=== PATIENT | male | born 1955 | race Caucasian/White ===

== ENCOUNTER 2021-03-11 05:11 | Emergency (ER) | payer SELFPAY ==
[2021-03-11] MEDS ORDERED: Sodium Chloride 0.9% 1000 ML 1,000 ML IV STA (05:31)
[2021-03-11] MEDS ORDERED: Cardizem IV 50 MG/10 ML IV ONE ×2 (05:31→05:37)
[2021-03-11] MEDS ORDERED: Ativan 2 MG/1 ML VIAL IV PRN (05:33)
--- NOTE | 2021-03-11 05:35 | ERPHSYRPT ---
- History of Present Illness Time Seen by Provider: 03/11/21 05:34 Source: patient Exam Limitations: no limitations Patient Subjective Stated Complaint: Patient states he has HTN and his B/P is currently high due to being out of his diltiazem medication. Patient states he is originally from [place] and is in [place] visiting family and ran out of his medication. Triage Nursing Assessment: Patient wheeled into ER in chair. Labored breathing noted. Skin tone pink, warm, dry. NO cough noted. Denies chest pain. Anterior chest clear. Physician History: Patient states he has HTN and his B/P is currently high due to being out of his diltiazem medication. Patient states he is originally from [place] and is in [place] visiting family and ran out of his medication. Patient denies any other symptoms including chest pain nausea vomiting abdominal pain. Patient is anxious in the ER and hyperventilating. Timing/Duration: today Activities at Onset: none Nitro Today/Relief: no nitro taken today Aspirin Treatment Today: no aspirin today Associated Symptoms: shortness of breath, other (anxious, hyperventivetilating) Prior Chest Pain/Cardiac Workup: no prior chest pain Allergies/Adverse Reactions: No Known Drug Allergies Allergy (Verified 03/11/21 05:26) Home Medications: Lisinopril 10 mg [Zestril 10 MG] 10 mg PO DAILY 03/11/21 [History] Paroxetine HCl 20 mg [Paxil 20 MG] 20 mg PO DAILY 03/11/21 [History] Hx Tetanus, Diphtheria Vaccination/Date Given: Yes Immunizations Up to Date: Yes Travel Risk - International Travel Have you traveled outside of the country in past 3 weeks: No - Coronavirus Screening Are you exhibiting any of the following symptoms?: Yes Symptoms: Shortness of Breath Close contact with a COVID-19 positive Pt in past 14-21 Days: No - Vaccine Status Have you recieved a Covid-19 vaccination: No - Review of Systems Constitutional: No Fever, No Chills Eyes: No Symptoms Ears, Nose, & Throat: No Symptoms Respiratory: Dyspnea, No Cough Cardiac: No Chest Pain, No Edema, No Palpitations, No Syncope, No Orthopnea, No PND Abdominal/Gastrointestinal: No Abdominal Pain, No Nausea, No Vomiting, No Diarrhea Genitourinary Symptoms: No Dysuria Musculoskeletal: No Back Pain, No Neck Pain Skin: No Rash Neurological: Irritability, No Dizziness, No Focal Weakness, No Sensory Changes Psychological: No Symptoms, Anxiety Endocrine: No Symptoms All Other Systems: Reviewed and Negative - Past Medical History Pertinent Past Medical History: Yes Neurological History: No Pertinent History ENT History: No Pertinent History Cardiac History: Hypertension Respiratory History: No Pertinent History Endocrine Medical History: No Pertinent History Musculoskeletal History: No Pertinent History GI Medical History: No Pertinent History History: No Pertinent History Psycho-Social History: Anxiety, Depression Male Reproductive Disorders: No Pertinent History - Past Surgical History Past Surgical History: Yes Neuro Surgical History: No Pertinent History Cardiac: No Pertinent History Respiratory: No Pertinent History Gastrointestinal: No Pertinent History Genitourinary: No Pertinent History Musculoskeletal: No Pertinent History Male Surgical History: No Pertinent History 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 - Social History Smoking Status: Current every day smoker How long have you smoked: 40 years Drug Use: none - Nursing Vital Signs Nursing Vital Signs: Initial Vital Signs Temperature 98 F 03/11/21 05:15 Pulse Rate 98 H 03/11/21 05:15 Respiratory Rate 26 H 03/11/21 05:15 Blood Pressure 186/81 03/11/21 05:15 O2 Sat by Pulse Oximetry 97 03/11/21 05:15 - Physical Exam General Appearance: no apparent distress, alert Eye Exam: PERRL/EOMI, eyes nml inspection Ears, Nose, Throat Exam: normal ENT inspection, moist mucous membranes Neck Exam: normal inspection, non-tender, supple Respiratory Exam: normal breath sounds, lungs clear, No respiratory distress Cardiovascular Exam: regular rate/rhythm, normal heart sounds, No edema Gastrointestinal/Abdomen Exam: soft, No tenderness, No mass Back Exam: normal inspection, No CVA tenderness, No vertebral tenderness Extremity Exam: normal inspection, normal range of motion Neurologic Exam: alert, oriented x 3, cooperative, normal mood/affect, nml cerebellar function, sensation nml, No motor deficits Skin Exam: normal color, warm, dry Lymphatic Exam: No adenopathy SpO2: 97 - Course Nursing assessment & vital signs reviewed: Yes EKG Interpreted by Me: Sinus Rhythm Ordered Tests: Active Orders 24 hr Category Date Time Status EKG-ER Only STAT Care 03/11/21 05:31 Active BMP Stat Lab 03/11/21 05:45 Completed CBC W DIFF Stat Lab 03/11/21 05:45 Completed NT PRO BNP Stat Lab 03/11/21 05:45 Completed TROPONIN Q3H Lab 03/11/21 05:45 Completed TROPONIN Q3H Lab 03/11/21 08:45 Ordered TROPONIN Q3H Lab 03/11/21 11:45 Ordered TROPONIN Q3H Lab 03/11/21 14:45 Ordered TROPONIN Q3H Lab 03/11/21 17:45 Ordered Medication Summary Generic Name Dose Route Start Last Admin Trade Name Freq PRN Reason Stop Dose Admin Diltiazem HCl 120 mg 03/11/21 10:00 Cardizem Cd 120 Mg PO 04/10/21 09:59 DAILY NORMAN Sodium Chloride 1,000 mls @ 999 mls/hr 03/11/21 05:31 03/11/21 05:38 Sodium Chloride 0.9% 1000 Ml IV 03/11/21 06:31 999 mls/hr .Q1H1M STA Administration Lorazepam 1 mg 03/11/21 05:33 03/11/21 05:41 Ativan 2 Mg/1 Ml Vial IV 04/10/21 05:32 1 mg PRN PRN Administration CIWA SCORE Discontinued Medications Generic Name Dose Route Start Last Admin Trade Name Freq PRN Reason Stop Dose Admin Diltiazem HCl 10 mg 03/11/21 05:31 03/11/21 05:38 Cardizem Iv 50 Mg/10 Ml IV 03/11/21 05:32 10 mg STAT ONE Administration Diltiazem HCl Confirm 03/11/21 05:37 Cardizem Iv 50 Mg/10 Ml Administered 03/11/21 05:38 Dose 50 mg IV .STK-MED ONE Sodium Chloride Confirm 03/11/21 05:36 Sodium Chloride 0.9% 1000 Ml Administered 03/11/21 05:37 Dose 1,000 mls @ ud .ROUTE .STK-MED ONE Lab/Rad Data: Laboratory Result Diagrams 03/11/21 05:45 03/11/21 05:45 Laboratory Results 03/11/21 03/11/21 03/11/21 Range/Units 05:45 05:45 05:45 WBC 8.9 (4.0-10.5) K/mm3 RBC 4.69 (4.1-5.6) M/mm3 Hgb 15.1 (12.5-18.0) gm/dl Hct 44.1 (42-50) % MCV 94.0 (78-100) fl MCH 32.2 H (26-32) pg MCHC 34.2 (32-36) g/dl RDW 15.2 H (11.5-14.0) % Plt Count 174 (150-450) K/mm3 MPV 9.4 (7.5-11.0) fl Gran % 67.2 H (36.0-66.0) % Eos # (Auto) 0.04 (0-0.5) Absolute Lymphs (auto) 1.70 (1.0-4.6) Absolute Monos (auto) 1.14 (0.0-1.3) Lymphocytes % 19.2 L (24.0-44.0) % Monocytes % 12.9 H (0.0-12.0) % Eosinophils % 0.5 (0.00-5.0) % Basophils % 0.2 (0.0-0.4) % Absolute Granulocytes 5.96 (1.4-6.9) Basophils # 0.02 (0-0.4) Sodium 134 L (137-145) mmol/L Potassium 5.1 (3.5-5.1) mmol/L Chloride 96 L (98-107) mmol/L Carbon Dioxide 22 (22-30) mmol/L Anion Gap 21.3 H (5-15) MEQ/L BUN 9 (9-20) mg/dL Creatinine 0.78 (0.66-1.25) mg/dL Estimated GFR > 60.0 ML/MIN Glucose 101 (74-106) mg/dL Calcium 9.6 (8.4-10.2) mg/dL Troponin I < 0.012 (0.000-0.034) ng/mL NT-Pro-B Natriuret Pep 81.9 (0-900) pg/mL - Progress Progress: improved Air Movement: good Progress Note: 03/11/21 05:54 Patient is much more calm and at ease his blood pressure is also coming down. He is also feeling better. Blood Culture(s) Obtained: No Antibiotics given: No Counseled pt/family regarding: lab results, diagnosis, need for follow-up - Departure Departure Disposition: Home Clinical Impression: Medication discontinued without order Hypertension Qualifiers: Hypertension type: primary hypertension Qualified Code(s): I10 - Essential (jayjay rosales) hypertension Condition: Stable Critical Care Time: No Instructions: Malignant Hypertension (DC) Additional Instructions: Please follow-up with your primary care physician as soon as possible. We have sent 1 month supply of your diltiazem to local pharmacy. Please make an appointment with your primary care physician. If symptoms get worse come back to the emergency room. Please take all your medicine as prescribed and try to avoid discontinuing it. Discharge/Care Plan oT Verduzco was seen on 03/11/21 in the Emergency Room. The patient was counseled regarding Diagnosis,Lab results, Imaging studies, need for follow up and when to return to the Emergency Room. Prescriptions given: Discharge Note I have spoken with the patient and/or caregivers. I have explained the patient's condition, diagnosis and treatment plan based on the information available to me at this time. I have answered the patient's and/or caregiver's questions and addressed any concerns. The patient and/or caregivers have as good understanding of the patient's diagnosis, condition and treatment plan as can be expected at this point. The vital signs have been stable. The patient's condition is stable and appropriate for discharge from the emergency department. The patient will pursue further outpatient evaluation with the primary care physician or other designated or consulting physician as outlined in the discharge instructions. The patient and/or caregivers are agreeable to this plan of care and follow-up instructions have been explained in detail. The patient a nd/or caregivers have received these instruction. The patient/and or caregivers are aware that any significant change in condition or worsening of symptoms should prompt an immediate return to this or the closest emergency department or call 911. To Verduzco was seen on 03/11/21 n the Emergency Room. At that time you were treated for an emergent condition, during your visit Laboratory, Radiology and/or other procedures may have been ordered. It is very important that you follow-up with your Primary Care Physician within the next 24-48 hours to review your Emergency Room visit and the final results of testing that was ordered. Some test results such as Urine Cultures, Blood Cultures, and other cultures if ordered will not be finalized for 24-48 hours. If you do not have a Primary Care Provider please call the medical records department at [phone] to obtain a copy of your results or you may sign into our patient portal to obtain these results by visiting us @ [email or web address] and completing the following steps: 1. Click on the Patient Portal link 2. Click the Patient Self Enrollment Link to complete the enrollment form and entering your 3. Once the enrollment form is completed you will receive an email with a temporary ID and password at the email address you provided. 4. Next choose a user name and password. Your user name must be at least 4 characters long and your password must be at least 4 characters long. 5. Choose a security question from the list and provide your answer to the question. If you already have signed into the Health Portal you may access your Health Care Information 20/01 by the following steps: 1. Login to our website @ [email or web address] 2. Enter your original user name and password. FAQS The [facility] Health Portal is an online tool that contains your Lab Results, Radiology Reports, Visit History, Discharge Instructions and Health Summary Lab and Radiology Results will not be available for 72 hours on the portal. The Portal is a secure site, passwords are encryted and URLs are re-written so they cannot be copied and pasted. You and authorized family members are the only ones who can access your Portal. Also there is a timeout feature that protects your information if you leave the Portal page open. If you have technical difficulty please use the Contact Us link on the page this will allow you to submit any questions you have regarding the Portal or you may contact the Medical Record Department at [phone]. Prescriptions: Diltiazem HCl [Diltiazem ER] 120 mg PO DAILY 30 Days #30 cap
[2021-03-11] MEDS ORDERED: Sodium Chloride 0.9% 1000 ML 1,000 ML ONE (05:36)
[2021-03-11] MEDS ORDERED: Ativan 2 MG/1 ML VIAL ONE (05:40)
[2021-03-11 05:51] LABS: Absolute Neutrophil Ct (ANC) 5.96 (1.4-6.9); BASOPHIL % 0.2 % (0.0-0.4); Basophil (Absolute #) 0.02 (0-0.4); Eosinophil % 0.5 % (0.00-5.0); Eosinophil (Absolute #) 0.04 (0-0.5); Hematocrit 44.1 % (42-50); Hemoglobin 15.1 gm/dl (12.5-18.0); Lymphocytes % 19.2 % (24.0-44.0); Mean Corpuscular Hemoglobin 32.2 pg (26-32); Mean Corpuscular Hgb Concent. 34.2 g/dl (32-36); Mean Platelet Volume 9.4 fl (7.5-11.0); Monocyte (Absolute #) 1.14 (0.0-1.3); Monocytes % 12.9 % (0.0-12.0); Neutrophil % 67.2 % (36.0-66.0); Platelet Count 174 K/mm3 (150-450); Red Blood Count 4.69 M/mm3 (4.1-5.6); Red Cell Distribution Width 15.2 % (11.5-14.0); White Blood Count 8.9 K/mm3 (4.0-10.5)
[2021-03-11 06:13] LABS: ANION GAP 21.3 MEQ/L (5-15); BLOOD UREA NITROGEN 9 mg/dL (9-20); CHLORIDE 96 mmol/L (98-107); Calcium 9.6 mg/dL (8.4-10.2); Carbon Dioxide 22 mmol/L (22-30); Creatinine 1 0.78 mg/dL (0.66-1.25); EST GLOMERULAR FILTRATION RATE > 60.0 ML/MIN; Glucose 101 mg/dL (74-106); NT PRO BNP 81.9 pg/mL (0-900); Potassium 5.1 mmol/L (3.5-5.1); SODIUM 134 mmol/L (137-145)
[2021-03-11 07:05] VITALS: BP 174/94; PULSE 80; O2SAT 95
[2021-03-11] MEDS ORDERED: Cardizem CD 120 MG PO SCH (10:00)
== END 2021-03-11 07:08 | disposition home or self-care (01) ==
LOC: ED 05:11
DX: I10 Essential (primary) hypertension (principal); Z91.14 Patient's other noncompliance with medication regimen; R06.02 Shortness of breath; R06.4 Hyperventilation; Z79.899 Other long term (current) drug therapy
CPT/HCPCS: 36000; 36415; 80048; 83880; 84484; 85025; 93005; 96360; 96374; 99284; U0003; J2060

== ENCOUNTER 2021-03-29 10:08 | Emergency (ER) | payer SELFPAY ==
--- NOTE | 2021-03-29 10:16 | ERPHSYRPT ---
- History of Present Illness Time Seen by Provider: 03/29/21 10:15 Source: patient, EMS Exam Limitations: clinical condition, intoxication Physician History: This is a 65-year-old white male who consumes a large amount of alcohol each day and did so late last night early evening. In addition, he smokes 2 packs of cigarettes a day and has done so for many years. He presents with shortness of breath. He stated that over 2 weeks ago he got over a bout of COVID-19 inf ection. He also says he feels anxious. He has been out of his Paxil for 2 weeks and is looking for refill of that medicine. Patient was here 18 days ago in this emergency department looking for refill on his diltiazem. Patient is from [place] and now lives in [place]. He told me this morning that he is likely not moving back to [place]. He has no chest pain. Patient arrives via EMS and smells of alcohol. He denies fever. Has had no nausea vomiting or diarrhea. Timing/Duration: today Activities at Onset: none Severity of Dyspnea-Max: mild Severity of Dyspnea-Current: mild Possible Cause: frequent episodes Modifying Factors: Improves With: activity Associated Symptoms: anxiety, wheezing, No cough, No chest pain/discomfort Allergies/Adverse Reactions: No Known Drug Allergies Allergy (Verified 03/29/21 10:11) Home Medications: Lisinopril 10 mg [Zestril 10 MG] 10 mg PO DAILY 03/11/21 [History] Paroxetine HCl 20 mg [Paxil 20 MG] 20 mg PO DAILY 03/11/21 [History] Hx Tetanus, Diphtheria Vaccination/Date Given: Yes Travel Risk - International Travel Have you traveled outside of the country in past 3 weeks: No - Coronavirus Screening Are you exhibiting any of the following symptoms?: Yes Symptoms: Shortness of Breath - Vaccine Status Have you recieved a Covid-19 vaccination: No - Review of Systems Constitutional: No Symptoms Eyes: No Symptoms Ears, Nose, & Throat: No Symptoms Respiratory: Dyspnea, Wheezing Cardiac: No Symptoms Abdominal/Gastrointestinal: No Symptoms Genitourinary Symptoms: No Symptoms Musculoskeletal: No Symptoms Skin: No Symptoms Neurological: No Symptoms Psychological: No Symptoms Endocrine: No Symptoms Hematologic/Lymphatic: No Symptoms Immunological/Allergic: No Symptoms All Other Systems: Reviewed and Negative - Past Medical History Pertinent Past Medical History: Yes Neurological History: No Pertinent History ENT History: No Pertinent History Cardiac History: Hypertension Respiratory History: No Pertinent History Endocrine Medical History: No Pertinent History Musculoskeletal History: No Pertinent History GI Medical History: No Pertinent History History: No Pertinent History Psycho-Social History: Anxiety, Depression Male Reproductive Disorders: No Pertinent History - Past Surgical History Past Surgical History: Yes Neuro Surgical History: No Pertinent History Cardiac: No Pertinent History Respiratory: No Pertinent History Gastrointestinal: No Pertinent History Genitourinary: No Pertinent History Musculoskeletal: No Pertinent History Male Surgical History: No Pertinent History 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 - Social History Smoking Status: Current every day smoker How long have you smoked: 40 years Drug Use: none - Nursing Vital Signs Nursing Vital Signs: Initial Vital Signs Temperature 99.1 F 03/29/21 10:13 Pulse Rate 91 H 03/29/21 10:13 Respiratory Rate 18 03/29/21 10:13 Blood Pressure 152/90 03/29/21 10:13 O2 Sat by Pulse Oximetry 95 03/29/21 10:13 Pain Scale Pain Intensity 0 - Physical Exam General Appearance: no apparent distress, alert, anxiety Eye Exam: PERRL/EOMI, eyes nml inspection Ears, Nose, Throat Exam: hearing grossly normal, normal ENT inspection, normal pharynx Neck Exam: normal inspection, non-tender, supple, full range of motion Respiratory Exam: chest tenderness, airway intact, wheezing (Left upper lobe), No respiratory distress Cardiovascular/Chest Exam: normal heart sounds, regular rate/rhythm, normal may pheral pulses Abdominal/Gastrointestinal Exam: soft, normal bowel sounds, guarding, No tenderness Rectal Exam: not done Extremity Exam: non-tender, normal range of motion, normal inspection Neurologic Exam: alert, oriented x 3, cooperative, whiting can worker II-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 I reviewed this in there possibly is minimal ST depression in V6 but not in V5 1 or aVL and nowhere else on the EKG.), Other (No acute i schemic changes on today's EKG. Possible change in V6 that i do not appreciate. Patient does not have chest pain. When compared to EKG dated 03/11/2021) Ordered Tests: Active Orders 24 hr Category Date Time Status EKG-ER Only STAT Care 03/29/21 10:33 Active IV Insertion STAT Care 03/29/21 10:33 Active CHEST 1 VIEW (PORTABLE) Stat Exams 03/29/21 10:34 Completed CHEST WITH CONTRAST [CT] Stat Exams 03/29/21 11:34 Completed ABG [ARTERIAL BLOOD GASES] Stat Lab 03/29/21 11:05 Completed CBC W DIFF Stat Lab 03/29/21 10:50 Completed CMP Stat Lab 03/29/21 10:50 Completed D-DIMER QUANTITATIVE Stat Lab 03/29/21 10:50 Completed ETHYL ALCOHOL Stat Lab 03/29/21 10:50 Completed Lactic Acid Stat Lab 03/29/21 11:05 Completed MAGNESIUM Stat Lab 03/29/21 10:50 Completed TROPONIN Q3H Lab 03/29/21 10:50 Completed TROPONIN Q3H Lab 03/29/21 13:45 Ordered TROPONIN Q3H Lab 03/29/21 16:45 Ordered TROPONIN Q3H Lab 03/29/21 19:45 Ordered TROPONIN Q3H Lab 03/29/21 22:45 Ordered UA W/RFX UR CULTURE Stat Lab 03/29/21 10:34 Ordered Urine Triage Profile Stat Lab 03/29/21 10:34 Ordered Medication Summary Generic Name Dose Route Start Last Admin Trade Name Freq PRN Reason Stop Dose Admin Sodium Chloride 1,000 mls @ 100 mls/hr 03/29/21 11:30 03/29/21 11:28 Sodium Chloride 0.9% 1000 Ml IV 04/28/21 11:29 100 mls/hr .Q10H NORMAN Administration Discontinued Medications Generic Name Dose Route Start Last Admin Trade Name Freq PRN Reason Stop Dose Admin Methylprednisolone Sodium 0 mg 03/29/21 11:10 03/29/21 11:15 Succinate 125 mg/ Sterile IV 03/29/21 11:11 125 mg Water 2 ml STAT ONE Administration Lorazepam 1 mg 03/29/21 10:33 03/29/21 11:09 Ativan 2 Mg/1 Ml Vial IV 03/29/21 10:34 1 mg STAT ONE Administration Lorazepam Confirm 03/29/21 11:05 Ativan 2 Mg/1 Ml Vial Administered 03/29/21 11:06 Dose 2 mg .ROUTE .STK-MED ONE Methylprednisolone Sodium Succinate Confirm 03/29/21 11:13 Solu-Medrol Administered 03/29/21 11:14 Dose 125 mg .ROUTE .STK-MED ONE Ondansetron HCl 4 mg 03/29/21 10:33 03/29/21 11:08 Zofran 4 Mg/2 Ml Vial IV 03/29/21 10:34 4 mg STAT ONE Administration Ondansetron HCl Confirm 03/29/21 11:05 Zofran 4 Mg/2 Ml Vial Administered 03/29/21 11:06 Dose 4 mg .ROUTE .STK-MED ONE Sterile Water Confirm 03/29/21 11:13 Sterile H2o 10 Ml Administered 03/29/21 11:14 Dose 10 ml IJ .STK-MED ONE Lab/Rad Data: Laboratory Result Diagrams 03/29/21 10:50 03/29/21 10:50 Laboratory Results 03/29/21 03/29/21 03/29/21 Range/Units 11:05 11:05 10:50 WBC (4.0-10.5) K/mm3 RBC (4.1-5.6) M/mm3 Hgb (12.5-18.0) gm/dl Hct (42-50) % MCV (78-100) fl MCH (26-32) pg MCHC (32-36) g/dl RDW (11.5-14.0) % Plt Count (150-450) K/mm3 MPV (7.5-11.0) fl Gran % (36.0-66.0) % Eos # (Auto) (0-0.5) Absolute Lymphs (auto) (1.0-4.6) Absolute Monos (auto) (0.0-1.3) Lymphocytes % (24.0-44.0) % Monocytes % (0.0-12.0) % Eosinophils % (0.00-5.0) % Basophils % (0.0-0.4) % Absolute Granulocytes (1.4-6.9) Basophils # (0-0.4) D-Dimer (215-500) ng/mL Puncture Site RIGHT BRACHIAL pCO2 33 L (35-45) mmHg pO2 74 L (75-100) mmHg Base Excess 0.3 (-2.0-2.0) O2 Saturation 89.2 L (94-100) g/dF ABG pH 7.46 H (7.35-7.45) ABG HCO3 23.5 (22-28) ABG O2 Sat (Measured) 96.2 (95-100) % Rufino Test NOT APPLICABLE A-a Gradient 84 a/A Ratio 0.47 Hemoglobin 14.2 Carboxyhemoglobin 6.6 (0.0-6.9) % THgb Methemoglobin 0.7 L (1.4-1.5) % Temperature 37.0 C POC O2 Flow Rate 28 % Sodium (137-145) mmol/L Potassium 3.8 (3.5-5.1) mmol/L Chloride (98-107) mmol/L Carbon Dioxide (22-30) mmol/L Anion Gap (5-15) MEQ/L BUN (9-20) mg/dL Creatinine (0.66-1.25) mg/dL Estimated GFR ML/MIN Glucose (74-106) mg/dL Lactic Acid 3.1 H (0.4-2.0) Calcium (8.4-10.2) mg/dL Magnesium (1.6-2.3) mg/dL Total Bilirubin (0.2-1.3) mg/dL AST (17-59) U/L ALT (0-50) U/L Alkaline Phosphatase (38-126) U/L Troponin I < 0.012 (0.000-0.034) ng/mL Serum Total Protein (6.3-8.2) g/dL Albumin (3.5-5.0) g/dL Ethyl Alcohol (0-10) mg/dL 03/29/21 03/29/21 03/29/21 Range/Units 10:50 10:50 10:50 WBC (4.0-10.5) K/mm3 RBC (4.1-5.6) M/mm3 Hgb (12.5-18.0) gm/dl Hct (42-50) % MCV (78-100) fl MCH (26-32) pg MCHC (32-36) g/dl RDW (11.5-14.0) % Plt Count (150-450) K/mm3 MPV (7.5-11.0) fl Gran % (36.0-66.0) % Eos # (Auto) (0-0.5) Absolute Lymphs (auto) (1.0-4.6) Absolute Monos (auto) (0.0-1.3) Lymphocytes % (24.0-44.0) % Monocytes % (0.0-12.0) % Eosinophils % (0.00-5.0) % Basophils % (0.0-0.4) % Absolute Granulocytes (1.4-6.9) Basophils # (0-0.4) D-Dimer 1364 H* (215-500) ng/mL Puncture Site pCO2 (35-45) mmHg pO2 (75-100) mmHg Base Excess (-2.0-2.0) O2 Saturation (94-100) g/dF ABG pH (7.35-7.45) ABG HCO3 (22-28) ABG O2 Sat (Measured) (95-100) % Rufino Test A-a Gradient a/A Ratio Hemoglobin Carboxyhemoglobin (0.0-6.9) % THgb Methemoglobin (1.4-1.5) % Temperature C POC O2 Flow Rate % Sodium 136 L (137-145) mmol/L Potassium 4.0 (3.5-5.1) mmol/L Chloride 103 (98-107) mmol/L Carbon Dioxide 21 L (22-30) mmol/L Anion Gap 16.7 H (5-15) MEQ/L BUN 4 L (9-20) mg/dL Creatinine 0.72 (0.66-1.25) mg/dL Estimated GFR > 60.0 ML/MIN Glucose 105 (74-106) mg/dL Lactic Acid (0.4-2.0) Calcium 8.7 (8.4-10.2) mg/dL Magnesium 1.4 L (1.6-2.3) mg/dL Total Bilirubin 0.90 (0.2-1.3) mg/dL AST 102 H (17-59) U/L ALT 32 (0-50) U/L Alkaline Phosphatase 133 H (38-126) U/L Troponin I (0.000-0.034) ng/mL Serum Total Protein 7.4 (6.3-8.2) g/dL Albumin 4.0 (3.5-5.0) g/dL Ethyl Alcohol 100 H (0-10) mg/dL 03/29/21 Range/Units 10:50 WBC 6.5 (4.0-10.5) K/mm3 RBC 4.22 (4.1-5.6) M/mm3 Hgb 14.0 (12.5-18.0) gm/dl Hct 41.4 L (42-50) % MCV 98.1 (78-100) fl MCH 33.2 H (26-32) pg MCHC 33.8 (32-36) g/dl RDW 17.6 H (11.5-14.0) % Plt Count 143 L (150-450) K/mm3 MPV 9.0 (7.5-11.0) fl Gran % 66.2 H (36.0-66.0) % Eos # (Auto) 0.03 (0-0.5) Absolute Lymphs (auto) 1.26 (1.0-4.6) Absolute Monos (auto) 0.88 (0.0-1.3) Lymphocytes % 19.3 L (24.0-44.0) % Monocytes % 13.5 H (0.0-12.0) % Eosinophils % 0.5 (0.00-5.0) % Basophils % 0.5 (0.0-0.4) % Absolute Granulocytes 4.34 (1.4-6.9) Basophils # 0.03 (0-0.4) D-Dimer (215-500) ng/mL Puncture Site pCO2 (35-45) mmHg pO2 (75-100) mmHg Base Excess (-2.0-2.0) O2 Saturation (94-100) g/dF ABG pH (7.35-7.45) ABG HCO3 (22-28) ABG O2 Sat (Measured) (95-100) % Rufino Test A-a Gradient a/A Ratio Hemoglobin Carboxyhemoglobin (0.0-6.9) % THgb Methemoglobin (1.4-1.5) % Temperature C POC O2 Flow Rate % Sodium (137-145) mmol/L Potassium (3.5-5.1) mmol/L Chloride (98-107) mmol/L Carbon Dioxide (22-30) mmol/L Anion Gap (5-15) MEQ/L BUN (9-20) mg/dL Creatinine (0.66-1.25) mg/dL Estimated GFR ML/MIN Glucose (74-106) mg/dL Lactic Acid (0.4-2.0) Calcium (8.4-10.2) mg/dL Magnesium (1.6-2.3) mg/dL Total Bilirubin (0.2-1.3) mg/dL AST (17-59) U/L ALT (0-50) U/L Alkaline Phosphatase (38-126) U/L Troponin I (0.000-0.034) ng/mL Serum Total Protein (6.3-8.2) g/dL Albumin (3.5-5.0) g/dL Ethyl Alcohol (0-10) mg/dL - Progress Progress: improved Air Movement: good Progress Note: 03/29/21 13:03 CAT scan of the chest with contrast shows a nonoccluding right middle lobe pulmonary embolus. There is diffuse pulmonary fibrosis. There is no evidence of any pulmonary infiltrate. Chest x-ray shows mild bibasilar interstitial alveolar opacities without con solidation or effusion. 03/29/21 13:06 Medical decision making: This patient has an appointment to see Dr. Munoz at [address] Munoz to discuss this patient's final disposition from the emergency department. He and I both feel that the patient can be treated as an outpatient. Dr. Munoz will evaluate him at 3 PM today. I will give him the first dose of Eliquis today. Dr. Munoz will make final determination as to what medications for hypertension, anxiety and how long this patient will be taking and what dose level he will be taking Eliquis. At the time of discharge the patient has no chest pain. His blood pressure is 178/81, his heart rate is 98, his respiratory rates 21, his room air saturation is 97%. Blood Culture(s) Obtained: No Antibiotics given: No Discussed with : Kathi Counseled pt/family regarding: lab results, diagnosis, need for follow-up, rad results - Departure Departure Disposition: Home Clinical Impression: Pulmonary embolism, Alcohol intoxication, Anxiety Condition: Stable Critical Care Time: Yes Critical Care Time(excluding separately billable procedures): Critical 30-74 mins Referrals: DOCTOR,NO FAMILY [Primary Care Provider] - Additional Instructions: Take your medications as prescribed. Prescriptions: Apixaban [Eliquis] 5 mg PO BID #14 tablet
[2021-03-29] MEDS ORDERED: Zofran 4 MG/2 ML VIAL IV ONE (10:33)
[2021-03-29] MEDS ORDERED: Ativan 2 MG/1 ML VIAL IV ONE (10:33)
[2021-03-29 10:58] LABS: Absolute Neutrophil Ct (ANC) 4.34 (1.4-6.9); BASOPHIL % 0.5 % (0.0-0.4); Basophil (Absolute #) 0.03 (0-0.4); Eosinophil % 0.5 % (0.00-5.0); Eosinophil (Absolute #) 0.03 (0-0.5); Hematocrit 41.4 % (42-50); Lymphocyte (Absolute #) 1.26 (1.0-4.6); Lymphocytes % 19.3 % (24.0-44.0); Mean Cell Volume 98.1 fl (78-100); Mean Corpuscular Hemoglobin 33.2 pg (26-32); Mean Corpuscular Hgb Concent. 33.8 g/dl (32-36); Monocyte (Absolute #) 0.88 (0.0-1.3); Monocytes % 13.5 % (0.0-12.0); Neutrophil % 66.2 % (36.0-66.0); Platelet Count 143 K/mm3 (150-450); Red Blood Count 4.22 M/mm3 (4.1-5.6); Red Cell Distribution Width 17.6 % (11.5-14.0); White Blood Count 6.5 K/mm3 (4.0-10.5)
--- NOTE | 2021-03-29 10:58 | XRAY ---
Indication: Short of breath. Comparison: None Portable chest demonstrates mild bibasilar interstitial alveolar opacities without consolidation/large effusion. Heart not enlarged. Bony thorax intact with mild osteopenia, degenerative changes, and mild dextroscoliosis.
[2021-03-29] MEDS ORDERED: Ativan 2 MG/1 ML VIAL ONE (11:05)
[2021-03-29] MEDS ORDERED: Zofran 4 MG/2 ML VIAL ONE (11:05)
[2021-03-29] MEDS ORDERED: solu-MEDROL 125 MG, Sterile H2O 10 ml 2 ML IV ONE ×2 (11:10)
[2021-03-29] MEDS ORDERED: Sterile H2O 10 ml IJ ONE (11:13)
[2021-03-29] MEDS ORDERED: solu-MEDROL ONE (11:13)
[2021-03-29 11:17] LABS: A-aADO2 84; ABG HEMOGLOBIN 14.2; ABG POTASSIUM 3.8 (3.5-5.1); ABG SITE RIGHT BRACHIAL; ARTERIAL BLD GAS O2 SATURATION 96.2 % (95-100); ARTERIAL BLOOD GAS BASE EXCESS 0.3 (-2.0-2.0); ARTERIAL BLOOD GAS FIO2 28 %; ARTERIAL BLOOD GAS PCO2 33 mmHg (35-45); ARTERIAL BLOOD GAS PO2 74 mmHg (75-100); ARTERIAL BLOOD GAS pH 7.46 (7.35-7.45); CARBOXYHEMOGLOBIN 6.6 % THgb (0.0-6.9); HCO3- 23.5 (22-28); HGB O2 SAT 89.2 g/dF (94-100); Methhemoglobin 0.7 % (1.4-1.5)
[2021-03-29] MEDS ORDERED: Sodium Chloride 0.9% 1000 ML 1,000 ML ONE (11:22)
[2021-03-29 11:25] LABS: ALKALINE PHOSPHATASE 133 U/L (38-126); ANION GAP 16.7 MEQ/L (5-15); BLOOD UREA NITROGEN 4 mg/dL (9-20); CHLORIDE 103 mmol/L (98-107); Calcium 8.7 mg/dL (8.4-10.2); Carbon Dioxide 21 mmol/L (22-30); Creatinine 1 0.72 mg/dL (0.66-1.25); EST GLOMERULAR FILTRATION RATE > 60.0 ML/MIN; Glucose 105 mg/dL (74-106); MAGNESIUM 1.4 mg/dL (1.6-2.3); SGOT/AST 102 U/L (17-59); SGPT/ALT 32 U/L (0-50); SODIUM 136 mmol/L (137-145); Total Protein 7.4 g/dL (6.3-8.2)
[2021-03-29] MEDS ORDERED: Sodium Chloride 0.9% 1000 ML 1,000 ML IV SCH (11:30)
--- NOTE | 2021-03-29 12:25 | XRAY ---
Indication: Chest pain and short of breath. Elevated d-dimer. Multiple contiguous axial images obtained through the chest using 84 cc Isovue 370 contrast and PE protocol. Comparison: None There is good opacification of the pulmonary arteries to include the lobar and segmental branches. Nonoccluding saddle thrombus seen in the lateral segment of the right middle lobe. Heart not enlarged. Aorta is mildly arteriosclerotic without aneurysm/dissection. No pathologic mediastinal/hilar lymphadenopathy. Small hiatal hernia. Lungs demonstrates moderate diffuse bilateral peripheral honeycombing as seen with diffuse pulmonary fibrosis. No suspicious pulmonary mass/nodule, infiltrate, or effusion. Bony thorax intact with mild degenerative changes throughout the spine. Limited upper abdomen demonstrates fatty liver and 8 mm right mid renal cyst. Impression: 1. Nonoccluding right middle lobe pulmonary embolus. 2. Diffuse bilateral peripheral honeycombing commonly seen with diffuse pulmonary fibrosis. 3. Incidental small hiatal hernia, fatty liver, and tiny right renal cyst.
[2021-03-29 13:03] VITALS: BP 173/81; PULSE 101; O2SAT 97
[2021-03-29] MEDS ORDERED: ELIQUIS 2.5 MG TABLET PO ONE (13:11)
[2021-03-29 14:41] LABS: Appearance CLEAR (CLEAR); Bilirubin NEGATIVE (NEGATIVE); Blood NEGATIVE Ery/ul (0-5); Glucose NEGATIVE (NEGATIVE); Ketones NEGATIVE (NEGATIVE); Leukocyte Esterase NEGATIVE (NEGATIVE); Nitrite NEGATIVE (NEGATIVE); Protein,Urine Dip NEGATIVE (Negative); Specific Gravity 1.024 (1.005-1.025); Urobilinogen NEGATIVE mg/dL (0-1)
[2021-03-29 14:58] LABS: Amphetamine,Urine NEGATIVE (NEGATIVE); Barbiturate,Urine NEGATIVE (NEGATIVE); Benzodiazepine,Urine NEGATIVE (NEGATIVE); Cocaine,Urine NEGATIVE (NEGATIVE); Methadone,Urine NEGATIVE (NEGATIVE); Opiate,Urine NEGATIVE (NEGATIVE); PCP,Urine NEGATIVE (NEGATIVE); THC,Urine NEGATIVE (NEGATIVE)
== END 2021-03-29 13:47 | disposition home or self-care (01) ==
LOC: ED 10:08
DX: I26.99 Other pulmonary embolism without acute cor pulmonale (principal); F10.129 Alcohol abuse with intoxication, unspecified; F41.9 Anxiety disorder, unspecified; I10 Essential (primary) hypertension; Z79.899 Other long term (current) drug therapy
CPT/HCPCS: 36415; 36600; 71045; 71260; 80053; 80307; 81001; 82375; 82803; 83605; 83735; 84484; 85025; 85379; 93005; 96374; 96375; 99284; 99291; J2060; J2405; J2930; A9270-GY; G0480

== ENCOUNTER 2021-03-29 16:33 | Observation (INO) | payer MEDICAID ==
--- NOTE | 2021-03-29 16:41 | ERPHSYRPT ---
- History of Present Illness Time Seen by Provider: 03/29/21 16:36 Source: patient Exam Limitations: no limitations Physician History: This is a 65-year-old white male who is an alcoholic and has history of hypertension and anxiety issues and presents back to the emergency department after being evaluated fully here in the emergency room earlier this morning. I spoke with the patient's primary care provider, Dr. Munoz, prior to discharging him from the emergency department so that he could reviewed the patient's medication, medical history and provide the patient with a local physician. Dr. Munoz and I felt that this patient was stable to be discharged to home on Eliquis to treat his newly diagnosed nonoccluding pulmonary embolism. Dr. Munoz evaluated patient in his office. He felt from the respiratory standpoint he was stable but the patient's blood pressure was very high at that visit and felt that maybe the patient be best served by placing him in the hospital. The patient systolic blood pressure here was approximately 170 systolic over 80s diastolic blood pressure. However, the patient had not taken his morning medication for his blood pressure. Dr. Munoz felt that the patient might be best served by controlling his blood pressure in the hospital as well as providing the patient with nebulizer treatments in-house. The patient has chronic alcoholism. His blood alcohol during his last visit was 100. Therefore, Dr. Munoz thought the patient would need to be covered with Ativan intravenously while he was in the hospital. Therefore, the patient was sent back over to the emergency department for admission. However, the Covid 19 status needs to be determined in this patient to know where we will place the patient. Timing/Duration: today Severity: moderate Associated Symptoms: shortness of breath Allergies/Adverse Reactions: No Known Drug Allergies Allergy (Verified 03/29/21 10:11) Home Medications: Lisinopril 10 mg [Zestril 10 MG] 10 mg PO DAILY 03/11/21 [History] Paroxetine HCl 20 mg [Paxil 20 MG] 20 mg PO DAILY 03/11/21 [History] Hx Tetanus, Diphtheria Vaccination/Date Given: Yes Hx Influenza Vaccination/Date Given: No Hx Pneumococcal Vaccination/Date Given: No Travel Risk - International Travel Have you traveled outside of the country in past 3 weeks: No - Coronavirus Screening Are you exhibiting any of the following symptoms?: Yes Symptoms: Shortness of Breath - Vaccine Status Have you recieved a Covid-19 vaccination: No - Review of Systems Constitutional: No Symptoms Eyes: No Symptoms Ears, Nose, & Throat: No Symptoms Respiratory: Dyspnea Cardiac: No Symptoms Abdominal/Gastrointestinal: No Symptoms Genitourinary Symptoms: No Symptoms Musculoskeletal: No Symptoms Skin: No Symptoms Neurological: No Symptoms Psychological: No Symptoms Endocrine: No Symptoms Hematologic/Lymphatic: No Symptoms Immunological/Allergic: No Symptoms All Other Systems: Reviewed and Negative - Past Medical History Pertinent Past Medical History: Yes Neurological History: No Pertinent History ENT History: No Pertinent History Cardiac History: Hypertension Respiratory History: No Pertinent History Endocrine Medical History: No Pertinent History Musculoskeletal History: No Pertinent History GI Medical History: No Pertinent History History: No Pertinent History Psycho-Social History: Anxiety, Depression Male Reproductive Disorders: No Pertinent History - Past Surgical History Past Surgical History: Yes Neuro Surgical History: No Pertinent History Cardiac: No Pertinent History Respiratory: No Pertinent History Gastrointestinal: No Pertinent History Genitourinary: No Pertinent History Musculoskeletal: No Pertinent History Male Surgical History: No Pertinent History 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 - Social History Smoking Status: Current every day smoker How long have you smoked: 40 years Exposure to second hand smoke: Yes Drug Use: none Patient Lives Alone: No - Nursing Vital Signs Nursing Vital Signs: Initial Vital Signs Temperature 98.7 F 03/29/21 16:34 Blood Pressure 158/95 03/29/21 16:34 Pain Scale Pain Intensity 0 - Physical Exam General Appearance: mild distress, alert, anxiety Eye Exam: PERRL/EOMI, eyes nml inspection Ears, Nose, Throat Exam: normal ENT inspection, moist mucous membranes Neck Exam: normal inspection, non-tender, supple, full range of motion Respiratory Exam: normal breath sounds, lungs clear, airway intact, No chest tenderness, No respiratory distress Cardiovascular Exam: regular rate/rhythm, normal heart sounds, normal peripheral pulses Gastrointestinal/Abdomen Exam: soft, normal bowel sounds, No tenderness Rectal Exam: not done Back Exam: normal inspection, normal range of motion, No CVA tenderness, No vertebral tenderness Extremity Exam: normal inspection, normal range of motion, pelvis stable Neurologic Exam: alert, oriented x 3, cooperative, 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 as tested, normal mood/affect, nml cerebellar function, nml station & gait, sensation nml Skin Exam: normal color, warm, dry Lymphatic Exam: No adenopathy SpO2 Interpretation: normal SpO2: 95 O2 Delivery: Room Air - Course Nursing assessment & vital signs reviewed: Yes Ordered Tests: Active Orders 24 hr Category Date Time Status IV Insertion STAT Care 03/29/21 16:59 Active Respiratory Therapy Assessment DAILY RT 03/30/21 07:00 Active Transfer Order Routine Transfer 03/29/21 Ordered Medication Summary Discontinued Medications Generic Name Dose Route Start Last Admin Trade Name Eulogio PRN Reason Stop Dose Admin Albuterol Sulfate 4 puff 03/29/21 16:59 03/29/21 17:10 Ventolin Common Canister IH 03/29/21 17:00 4 puff ONCE ONE Administration Lorazepam 1 mg 03/29/21 16:59 Ativan 2 Mg/1 Ml Vial IV 03/29/21 17:00 STAT ONE - Progress Progress: improved Progress Note: 03/29/21 16:44 Patient is anxious. His room air oxygenation is 95% upon entrance in the emerg ency department. However, the patient requested oxygen because he felt that this improved his oxygenation and sense of improvement in breathing. His heart rate is 98 and his blood pressure is 158/95. 03/29/21 16:57 Medical decision making: I spoke with Dr. Evans who is covering the Covid unit. I reviewed the patient history, recent work-up results and the current vital signs with him. He agrees with the patient to be placed in the Covid unit. We will cover him to help prevent DTs, give intravenous steroids, put him on Lovenox while in the hospital and start him on Eliquis per Dr. Evans. He will also get metered-dose inhaler treatments versus nebulizer treatments per respiratory. Counseled pt/family regarding: lab results, diagnosis - Departure Departure Disposition: In-patient Admission Clinical Impression: Pulmonary embolus, Alcohol intoxication, Anxiety, Hypertension Condition: Fair Critical Care Time: No Referrals: DOCTOR,NO FAMILY [Primary Care Provider] -
[2021-03-29] MEDS ORDERED: VENTOLIN COMMON CANISTER IH ONE (16:59)
[2021-03-29] MEDS ORDERED: Ativan 2 MG/1 ML VIAL IV ONE (16:59)
[2021-03-29] MEDS ORDERED: Ativan 2 MG/1 ML VIAL ONE (17:09)
[2021-03-29] MEDS ORDERED: Nicoderm CQ 21 MG TOP SCH (18:15)
[2021-03-29] MEDS ORDERED: Zofran 4 MG/2 ML VIAL IV PRN (18:15)
[2021-03-29] MEDS ORDERED: PROTONIX 40 MG IV IV SCH (18:15)
[2021-03-29] MEDS ORDERED: TYLENOL 325 MG PO PRN (18:15)
[2021-03-29] MEDS: Sodium Chloride 0.9% W/ 20 mEq KCl/LITER 1,000 ML IV SCH (19:02)
[2021-03-29] MEDS: VASOTEC I.V. 2.5 MG IV SCH (19:02)
[2021-03-29] MEDS ORDERED: Valium 5 MG PO STA (20:17)
[2021-03-29] MEDS ORDERED: Valium 5 MG ONE (20:20)
[2021-03-29] MEDS: Valium 5 MG PO STA (20:26)
[2021-03-29] MEDS: Ativan 2 MG/1 ML VIAL IV PRN (20:29)
[2021-03-29] MEDS ORDERED: Valium 5 MG PO SCH ×2 (20:30→22:00)
[2021-03-29] MEDS ORDERED: Paxil 20 MG PO ONE (22:00)
[2021-03-29] MEDS: Valium 5 MG PO SCH (22:33)
[2021-03-29] MEDS: ENOXAPARIN SODIUM SQ SCH (22:33)
[2021-03-30] MEDS: Ativan 2 MG/1 ML VIAL IV PRN ×5 (00:50→21:41)
[2021-03-30] MEDS: VASOTEC I.V. 2.5 MG IV SCH ×2 (00:52→05:55)
[2021-03-30 05:05] LABS: Absolute Neutrophil Ct (ANC) 2.32 (1.4-6.9); Basophil (Absolute #) 0 (0-0.4); Eosinophil (Absolute #) 0 (0-0.5); Hematocrit 41.1 % (42-50); Hemoglobin 13.7 gm/dl (12.5-18.0); Lymphocyte (Absolute #) 0.41 (1.0-4.6); Lymphocytes % 12.9 % (24.0-44.0); Mean Cell Volume 98.3 fl (78-100); Mean Corpuscular Hemoglobin 32.8 pg (26-32); Mean Corpuscular Hgb Concent. 33.3 g/dl (32-36); Mean Platelet Volume 9.5 fl (7.5-11.0); Monocyte (Absolute #) 0.46 (0.0-1.3); Monocytes % 14.4 % (0.0-12.0); Neutrophil % 72.7 % (36.0-66.0); Platelet Count 113 K/mm3 (150-450); Red Blood Count 4.18 M/mm3 (4.1-5.6); Red Cell Distribution Width 16.9 % (11.5-14.0); White Blood Count 3.2 K/mm3 (4.0-10.5)
[2021-03-30] MEDS: Valium 5 MG PO SCH ×4 (05:14→23:07)
[2021-03-30] MEDS: Sodium Chloride 0.9% W/ 20 mEq KCl/LITER 1,000 ML IV SCH ×2 (05:14→14:53)
[2021-03-30 05:48] LABS: ALBUMIN 3.8 g/dL (3.5-5.0); ALKALINE PHOSPHATASE 110 U/L (38-126); ANION GAP 11.3 MEQ/L (5-15); BLOOD UREA NITROGEN 6 mg/dL (9-20); CHLORIDE 97 mmol/L (98-107); Calcium 8.8 mg/dL (8.4-10.2); Carbon Dioxide 28 mmol/L (22-30); Creatinine 1 0.58 mg/dL (0.66-1.25); EST GLOMERULAR FILTRATION RATE > 60.0 ML/MIN; Glucose 143 mg/dL (74-106); Potassium 3.8 mmol/L (3.5-5.1); SGOT/AST 132 U/L (17-59); SGPT/ALT 40 U/L (0-50); SODIUM 133 mmol/L (137-145); Total Protein 7.1 g/dL (6.3-8.2)
[2021-03-30] MEDS ORDERED: Decadron 4 MG INJ IV SCH (06:00)
[2021-03-30] MEDS ORDERED: Valium 5 MG PO SCH (06:30)
[2021-03-30 06:39] LABS: Slide Review 1 YES
[2021-03-30] MEDS: Valium 5 MG PO STA (07:05)
[2021-03-30] MEDS ORDERED: TYLENOL EXTRA STRENGTH 500 MG PO PRN (07:13)
[2021-03-30] MEDS ORDERED: VASOTEC I.V. 2.5 MG IV PRN (07:15)
[2021-03-30] MEDS: PROTONIX 40 MG IV IV SCH (09:39)
[2021-03-30] MEDS: ENOXAPARIN SODIUM SQ SCH ×2 (09:39→21:39)
[2021-03-30] MEDS: Nicoderm CQ 21 MG TOP SCH (09:40)
[2021-03-30] MEDS: THERAGRAN MULTIVITAMIN PO SCH (09:40)
[2021-03-30] MEDS: VITAMIN B-1 100 MG PO SCH (09:40)
[2021-03-30] MEDS: FOLATE 1 MG PO SCH (09:40)
[2021-03-30] MEDS ORDERED: Zestril 20 MG PO SCH (10:00)
[2021-03-30] MEDS ORDERED: Paxil 20 MG PO SCH (10:00)
[2021-03-30 11:49] LABS: AMYLASE 79 U/L (30-110); LIPASE 91 U/L (23-300)
[2021-03-30] MEDS: Cardizem CD 120 MG PO SCH (12:44)
--- NOTE | 2021-03-30 12:50 | HP ---
CHIEF COMPLAINT: Shortness of breath. HISTORY OF PRESENT ILLNESS: The patient has been living in a camper out [place] the [place] by himself the entire spring and summer apparently. He is from [place]. He is . He is out of work. Drinks a quart of vodka a day plus unknown amount of beer. When he came in, his blood alcohol was 0.10. It is probably very low for him and he obviously had slurred speech, shaking, and looking like he was going into delirium tremens. Somewhere along the line someone said he had a positive COVID-19, although it is not on the chart and we haven't found it yet and he doesn't remember. 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 Says he has generalized anxiety disorder, but ran out of his medicine which was Paxil. He actually went to the Emergency Room and they didn't think his COVID-19 was bad enough and they sent him to Dr. Jennings because the CT scan done because of elevated d-dimer showed a pulmonary emboli. Since he was fairly stable, they thought maybe he could be treated as an outpatient. Went to [facility] said he didn't know his BP was high and thought he was getting meds. He treated himself very poor. He was out of alcohol. I am not for sure who takes care of him. He states he is going back to [place] when they close down the park and that he had a job interview today, but told them that he was in the hospital. International travel if you count [facility]. COVID-19 symptoms, shortness of breath, pulmonary emboli. VACCINE STATUS: None. SURGERIES: None except for debridement of skin due to Methicillin-resistant staphylococcus aureus. HOME MEDICATIONS: Lisinopril 10, Paxil 20. REVIEW OF SYSTEMS: CONSTITUTIONAL: None. HEENT: Seems to be slightly hard of hearing. CHEST: Short of breath on exertion. CVS: Denies heart problems. However, he has some cardiomyopathy on the echo. EKG was normal. NEURO: Says he has none. PSYCHOSOCIAL: Anxiety, depression. GASTROINTESTINAL: Today, he has got an upset stomach. SOCIAL HISTORY: Smokes every day for 40 years. Has also drank alcohol every day for 40 years. The patient is . Plans to move out of [place] and back to [place] and try to get a job. Does not have Medicaid, but working on it. PHYSICAL EXAMINATION: VITAL SIGNS: Temperature 97, BP 150/98, pain intensity 0. His O2 was 95 on room air. HEENT: Normal. NECK: Supple without adenopathy. CHEST: Clear. CVS: No murmurs or gallops. ABDOMEN: Soft. However, this morning, he is slightly tender over the middle of the abdomen. EXTREMITIES: Patient is weak, unstable on his feet, really not very safe walking at this time. IMPRESSION: 1. This morning, we really need to see if he had a COVID-19 test that was positive. I am pretty sure there is one out there. 2. Treat his alcohol withdrawal. Later in the evening, he started having bad tremors and looked liking he was going into delirium tremens, so he was given large amounts of Ativan and valium to continue. 3. Now he is having abdominal area pain. Rule out pancreatitis vs gastritis. He does take B12 and folate at home he states. His CT chest did show a nonoccluding saddle thrombus in the lateral segment of right middle lobe. Heart not enlarged. His lungs showed diffuse bilateral honeycombing as seen with diffuse pulmonary fibrosis. No masses. No infiltrate. Limited view of the liver showed it was fatty. PLAN: 1. Patient's delirium tremens will be treated. Will try to get him off alcohol and into a program. 2. We are going to have to get him medicine for pulmonary emboli. Right now, he is on Remdesivir and Levaquin. I believe the Emergency Room doctor gave him samples of Eliquis. 3. We need to get him some nutrition. Apparently, he does have an automobile, although he is out of money it sounds like because he ran out of alcohol. PROGNOSIS: Fair.
[2021-03-30] MEDS: VENTOLIN COMMON CANISTER IH PRN (19:32)
[2021-03-30] MEDS: DECADRON 10MG INJ. IV SCH (21:38)
[2021-03-30] MEDS: Zestril 20 MG PO SCH (21:39)
[2021-03-31] MEDS: Valium 5 MG PO SCH ×3 (05:09→21:01)
[2021-03-31 06:56] LABS: Basophil (Absolute #) 0 (0-0.4); Eosinophil (Absolute #) 0 (0-0.5); Hematocrit 41.2 % (42-50); Hemoglobin 13.8 gm/dl (12.5-18.0); Lymphocyte (Absolute #) 0.29 (1.0-4.6); Mean Cell Volume 98.8 fl (78-100); Mean Corpuscular Hemoglobin 33.1 pg (26-32); Mean Corpuscular Hgb Concent. 33.5 g/dl (32-36); Mean Platelet Volume 10.6 fl (7.5-11.0); Monocyte (Absolute #) 0.29 (0.0-1.3); Platelet Count 92 K/mm3 (150-450); Red Blood Count 4.17 M/mm3 (4.1-5.6); Red Cell Distribution Width 16.8 % (11.5-14.0); White Blood Count 5.8 K/mm3 (4.0-10.5)
[2021-03-31 07:49] LABS: Slide Review 1 YES
[2021-03-31 08:15] LABS: ALBUMIN 3.7 g/dL (3.5-5.0); ALKALINE PHOSPHATASE 90 U/L (38-126); ANION GAP 12.4 MEQ/L (5-15); BLOOD UREA NITROGEN 13 mg/dL (9-20); CHLORIDE 97 mmol/L (98-107); Calcium 8.8 mg/dL (8.4-10.2); Carbon Dioxide 25 mmol/L (22-30); EST GLOMERULAR FILTRATION RATE > 60.0 ML/MIN; Glucose 148 mg/dL (74-106); Potassium 3.8 mmol/L (3.5-5.1); SGOT/AST 62 U/L (17-59); SGPT/ALT 32 U/L (0-50); SODIUM 131 mmol/L (137-145)
[2021-03-31] MEDS ORDERED: NON-FORMULARY ITEM (Diltiazem Hcl [Diltiazem 24hr Er] 120 MG) PO SCH (10:00)
[2021-03-31] MEDS: ENOXAPARIN SODIUM SQ SCH ×2 (10:00→21:01)
[2021-03-31] MEDS: PROTONIX 40 MG IV IV SCH (10:00)
[2021-03-31] MEDS: DECADRON 10MG INJ. IV SCH (10:01)
[2021-03-31] MEDS: THERAGRAN MULTIVITAMIN PO SCH (10:02)
[2021-03-31] MEDS: VITAMIN B-1 100 MG PO SCH (10:02)
[2021-03-31] MEDS: Paxil 20 MG PO SCH (10:02)
[2021-03-31] MEDS: Cardizem CD 120 MG PO SCH (10:02)
[2021-03-31] MEDS: Nicoderm CQ 21 MG TOP SCH (10:03)
[2021-03-31] MEDS: FOLATE 1 MG PO SCH (10:03)
[2021-03-31] MEDS: Sodium Chloride 0.9% W/ 20 mEq KCl/LITER 1,000 ML IV SCH ×2 (10:04→23:31)
[2021-03-31] MEDS: Ativan 2 MG/1 ML VIAL IV PRN ×2 (10:45→19:50)
[2021-03-31 12:15] LABS: INR 1.11 (0.8-3.0); PROTIME 13.1 SECONDS (9.4-12.5)
[2021-03-31 13:27] LABS: Folate (Folic Acid) 5.61 ng/mL (2.76 - >20)
[2021-03-31] MEDS: VENTOLIN COMMON CANISTER IH PRN (19:25)
[2021-03-31] MEDS: Zestril 20 MG PO SCH (21:01)
[2021-04-01 07:02] LABS: Absolute Neutrophil Ct (ANC) 5.33 (1.4-6.9); Basophil (Absolute #) 0 (0-0.4); Eosinophil (Absolute #) 0 (0-0.5); Hematocrit 41.9 % (42-50); Hemoglobin 14.2 gm/dl (12.5-18.0); Lymphocytes % 7.8 % (24.0-44.0); Mean Cell Volume 98.1 fl (78-100); Mean Corpuscular Hemoglobin 33.3 pg (26-32); Mean Corpuscular Hgb Concent. 33.9 g/dl (32-36); Monocyte (Absolute #) 0.59 (0.0-1.3); Monocytes % 9.2 % (0.0-12.0); Platelet Count 92 K/mm3 (150-450); Red Blood Count 4.27 M/mm3 (4.1-5.6); Red Cell Distribution Width 16.7 % (11.5-14.0); White Blood Count 6.4 K/mm3 (4.0-10.5)
[2021-04-01 07:21] LABS: ANION GAP 11.3 MEQ/L (5-15); BLOOD UREA NITROGEN 15 mg/dL (9-20); CHLORIDE 99 mmol/L (98-107); Calcium 8.6 mg/dL (8.4-10.2); Carbon Dioxide 25 mmol/L (22-30); Creatinine 1 0.55 mg/dL (0.66-1.25); EST GLOMERULAR FILTRATION RATE > 60.0 ML/MIN; Glucose 139 mg/dL (74-106); Potassium 3.6 mmol/L (3.5-5.1); SODIUM 132 mmol/L (137-145)
[2021-04-01] MEDS: VENTOLIN COMMON CANISTER IH PRN (08:13)
[2021-04-01 09:07] LABS: Slide Review 1 YES
[2021-04-01] MEDS: Sodium Chloride 0.9% W/ 20 mEq KCl/LITER 1,000 ML IV SCH ×2 (09:43→09:44)
[2021-04-01] MEDS: ENOXAPARIN SODIUM SQ SCH ×2 (09:44→21:54)
[2021-04-01] MEDS: Paxil 20 MG PO SCH (09:44)
[2021-04-01] MEDS: THERAGRAN MULTIVITAMIN PO SCH (09:44)
[2021-04-01] MEDS: PROTONIX 40 MG IV IV SCH (09:44)
[2021-04-01] MEDS: Valium 5 MG PO SCH ×2 (09:44→21:54)
[2021-04-01] MEDS: VITAMIN B-1 100 MG PO SCH (09:45)
[2021-04-01] MEDS: Cardizem CD 120 MG PO SCH (09:45)
[2021-04-01] MEDS: FOLATE 1 MG PO SCH (09:45)
[2021-04-01] MEDS: Nicoderm CQ 21 MG TOP SCH (09:50)
[2021-04-01] MEDS: Ativan 2 MG/1 ML VIAL IV PRN ×2 (14:13→18:36)
[2021-04-01] MEDS: Zestril 20 MG PO SCH (21:54)
[2021-04-02] MEDS: Sodium Chloride 0.9% W/ 20 mEq KCl/LITER 1,000 ML IV SCH ×3 (02:41→20:46)
[2021-04-02] MEDS: ENOXAPARIN SODIUM SQ SCH ×2 (09:26→21:09)
[2021-04-02] MEDS: PROTONIX 40 MG IV IV SCH (09:26)
[2021-04-02] MEDS: Valium 5 MG PO SCH ×2 (09:26→21:09)
[2021-04-02] MEDS: Paxil 20 MG PO SCH (09:26)
[2021-04-02] MEDS: FOLATE 1 MG PO SCH (09:27)
[2021-04-02] MEDS: Nicoderm CQ 21 MG TOP SCH (09:27)
[2021-04-02] MEDS: VITAMIN B-1 100 MG PO SCH (09:27)
[2021-04-02] MEDS: Cardizem CD 120 MG PO SCH (09:27)
[2021-04-02] MEDS: THERAGRAN MULTIVITAMIN PO SCH (09:27)
[2021-04-02] MEDS: Zestril 20 MG PO SCH (21:09)
[2021-04-03] MEDS: Ativan 2 MG/1 ML VIAL IV PRN (01:41)
[2021-04-03 05:35] LABS: Hematocrit 41.3 % (42-50); Mean Cell Volume 98.6 fl (78-100); Mean Corpuscular Hemoglobin 33.4 pg (26-32); Mean Corpuscular Hgb Concent. 33.9 g/dl (32-36); Mean Platelet Volume 10.1 fl (7.5-11.0); Platelet Count 91 K/mm3 (150-450); Red Blood Count 4.19 M/mm3 (4.1-5.6); Red Cell Distribution Width 16.9 % (11.5-14.0); White Blood Count 4.7 K/mm3 (4.0-10.5)
[2021-04-03 05:58] LABS: ALBUMIN 3.1 g/dL (3.5-5.0); ALKALINE PHOSPHATASE 100 U/L (38-126); ANION GAP 9.6 MEQ/L (5-15); BLOOD UREA NITROGEN 13 mg/dL (9-20); CHLORIDE 99 mmol/L (98-107); Calcium 8.7 mg/dL (8.4-10.2); Carbon Dioxide 24 mmol/L (22-30); Creatinine 1 0.66 mg/dL (0.66-1.25); EST GLOMERULAR FILTRATION RATE > 60.0 ML/MIN; Glucose 113 mg/dL (74-106); Potassium 3.6 mmol/L (3.5-5.1); SGOT/AST 96 U/L (17-59); SGPT/ALT 74 U/L (0-50); SODIUM 129 mmol/L (137-145)
[2021-04-03 08:46] VITALS: BP 169/82
[2021-04-03] MEDS: ENOXAPARIN SODIUM SQ SCH (09:22)
[2021-04-03] MEDS: Valium 5 MG PO SCH (09:22)
[2021-04-03] MEDS: PROTONIX 40 MG IV IV SCH (09:22)
[2021-04-03] MEDS: Paxil 20 MG PO SCH (09:23)
[2021-04-03] MEDS: VITAMIN B-1 100 MG PO SCH (09:23)
[2021-04-03] MEDS: Nicoderm CQ 21 MG TOP SCH (09:23)
[2021-04-03] MEDS: FOLATE 1 MG PO SCH (09:23)
[2021-04-03] MEDS: Cardizem CD 120 MG PO SCH (09:24)
[2021-04-03] MEDS: THERAGRAN MULTIVITAMIN PO SCH (09:24)
[2021-04-03 12:11] VITALS: PULSE 67; O2SAT 93
--- NOTE | 2021-05-09 13:30 | DS ---
ADMISSION DIAGNOSIS: COVID pneumonia. DISCHARGE DIAGNOSIS: BILATERAL COVID PNEUMONIA. HOSPITAL COURSE: The patient is a 65-year-old white male who came into the emergency room with shortness of breath, positive COVID test and respiratory distress. On 03/31/2021, he was placed on some nasal cannula and started on Remdesivir, Decadron and improved pretty quickly. He was alert, well orientated and breathing better by 04/01/2021. However, he was unstable on his feet. His speech was clear, not short of breath. We needed to keep him here to start trying to get him to be able to ambulate. On 04/02/2021 unfortunately he was confused all of the time, yelling at others and not able to be approached. By 04/03/2021, he was alert and orientated. He was no longer confused. The agreed that we could send him home. He takes Pradaxa 5 mg b.i.d. so he is to continue that anticoagulation. He is to continue on his lisinopril 40, Paxil 20 mg, Eliquis given as substitution for the Pradaxa, this was given also for the history of deep vein thrombosis recently as well as for prophylactic. CBC is normal. B12 and folate also was normal. See his doctor in two weeks, isolate for two weeks. PROGNOSIS: Good.
== END 2021-04-03 13:25 | disposition home or self-care (01) ==
LOC: ED 16:33 → MED SURG 18:10 → INTOOBSV 18:10
PROVIDERS: ADMIT Family Medicine; ATTEND Family Medicine
DX: U07.1 COVID-19 (principal); J12.82 Pneumonia due to coronavirus disease 2019; F10.20 Alcohol dependence, uncomplicated; I26.92 Saddle embolus of pulmonary artery without acute cor pulmonale; I10 Essential (primary) hypertension; F41.9 Anxiety disorder, unspecified; F17.200 Nicotine dependence, unspecified, uncomplicated; R10.9 Unspecified abdominal pain; Z79.899 Other long term (current) drug therapy
CPT/HCPCS: 36000; 36415; 80048; 80053; 82150; 82607; 82746; 83690; 85025; 85027; 85610; 93005; 93268; 94640; 94762; 96374; 99285; G0378; J1100; J1650; J2060; A9270-GY